=== PATIENT | female | born 1990 | race Caucasian/White ===

== ENCOUNTER 2019-10-06 18:08 | Emergency (ER) | payer BC ==
[2019-10-06 18:24] VITALS: BP 129/83; PULSE 88; RESP 20; TEMP 98.2
== END 2019-10-06 18:30 | disposition left against medical advice (07) ==
LOC: EC 18:08
DX: R10.31 Right lower quadrant pain (principal); R11.0 Nausea; Z53.21 Procedure and treatment not carried out due to patient leaving prior to being seen by health care provider
CPT/HCPCS: 99499